=== PATIENT | male | born 1975 | race Caucasian/White ===

== ENCOUNTER 2017-09-16 02:18 | Emergency (ER) | payer MEDICAID ==
[~2017-09-16] VITALS: Ht 177.8 cm; Wt 88.9 kg
[~2017-09-16 02:18] MED LIST: ANT12.5 PO; COLACE100 MG PO; ECO81 PO; LIPI10 PO; NOR10T PO; ZOFRAN4 M2 PO
[2017-09-16 03:39] VITALS: BP 118/81
== END 2017-09-16 03:49 | disposition home or self-care (01) ==
LOC: ED 02:18
DX: S01.112A Laceration without foreign body of left eyelid and periocular area, initial encounter (principal); X58.XXXA Exposure to other specified factors, initial encounter; Y93.89 Activity, other specified; Y99.8 Other external cause status; Y92.89 Other specified places as the place of occurrence of the external cause
CPT/HCPCS: J2001

== ENCOUNTER 2017-09-23 20:31 | Emergency (ER) | payer SELFPAY ==
[~2017-09-23] VITALS: Ht 177.8 cm; Wt 94.8 kg
[2017-09-23 21:19] VITALS: BP 120/84
== END 2017-09-23 21:19 | disposition home or self-care (01) ==
LOC: ED 20:31
DX: Z48.02 Encounter for removal of sutures (principal)

== ENCOUNTER 2018-10-21 18:20 | Emergency (ER) | payer MEDICAID ==
[~2018-10-21] VITALS: Ht 175.3 cm; Wt 85.8 kg
[2018-10-21 18:39] VITALS: BP 118/83; Ht 175.3 cm; Wt 85.8 kg
== END 2018-10-21 23:10 | disposition home or self-care (01) ==
LOC: ED 18:20
DX: J02.9 Acute pharyngitis, unspecified (principal); B34.9 Viral infection, unspecified; R32 Unspecified urinary incontinence; Z86.73 Personal history of transient ischemic attack (TIA), and cerebral infarction without residual deficits
CPT/HCPCS: 82962; J0561; J1100